=== PATIENT | female | born 1985 | race Caucasian/White ===

== ENCOUNTER 2022-06-09 13:58 | Emergency (ER) | payer BC, SELFPAY ==
[2022-06-09 14:05] VITALS: BP 132/80; PULSE 70; RESP 18; TEMP 37; O2SAT 99
--- NOTE | 2022-06-09 15:30 | DI.RAD_ITS ---
Exam(s) XR FINGER RT LITTLE EXAM: XR FINGER RT LITTLE CLINICAL HISTORY: deformity. TECHNIQUE: 2D digital imaging was performed of the right finger. Three views were obtained. PA/AP, oblique, and lateral views were obtained. COMPARISON: No exams were available for comparison FINDINGS: BONES: There is an acute oblique fracture through the proximal metaphysis of the proximal phalanx of the 5th finger. There is a lucency seen on the articular surface at the 5th MCP joint suspicious for an intra-articular fracture. There is mild angulation of the fracture. There is associated soft ti ssue swelling. No bony destructive lesion is seen. JOINTS: No dislocation present. SOFT TISSUE: Soft tissue swelling is present. IMPRESSION: Acute mildly angulated fracture of the proximal phalanx of the right 5th finger. There is a question of intra-articular extension. There is associated soft tissue swelling. DATA REPOSITORY: RADIATION DOSE DELIVERED:
--- NOTE | 2022-06-09 15:30 | DI.RAD_ITS ---
Exam(s) XR RIBS LT W PA LAT CHEST EXAM: XR RIBS LT W PA LAT CHEST CLINICAL HISTORY: fall, left rib pain TECHNIQUE: 2D digital imaging was performed. Five images were obtained. COMPARISON: No exams were available for comparison FINDINGS: MEDIASTINUM: Normal. HEART: Normal. PULMONARY VASCULATURE: Normal. LUNGS: Clear. PLEURAL SPACE: No pleural effusion or pneumothorax. BONE:Within normal limits for the patient's age. LEFT RIBS: Normal. OTHER FINDINGS:Normal. IMPRESSION: 1. No acute pulmonary findings. 2. Unremarkable left ribs. DATA REPOSITORY: RADIATION DOSE DELIVERED:
--- NOTE | 2022-06-09 15:30 | DI.CT_ITS ---
Exam(s) CT HEAD WO EXAM: CT HEAD WO CLINICAL HISTORY: left chest wall contusion. TECHNIQUE: Imaging Protocol: Axial computed tomography images with coronal and sagittal reformatted images were created and reviewed COMPARISON: No exams were available for comparison FINDINGS: Ventricles and Extra axial spaces: Normal in size and morphology for the patient's age. Hemorrhage: None. Cerebral parenchyma: Normal. Midline shift: None. Brainstem/Cerebellum: Normal. Calvarium: Normal. Visualized Paranasal sinuses/Mastoids: Clear. Soft Tissues: Unremarkable. IMPRESSION: No acute intracranial process. RADIATION DOSE DELIVERED: 720.59mGy.cm Total DLP DATA REPOSITORY: All CT scans at this facility are submitted to the National Radiology Data Registry (NRDR) Dose Index Registry (DIR) with the [employer] (A[employer]). RADIATION OPTIMIZATION: All CT scans at this facility use at least one of these dose optimization te chniques: automated exposure control; mA and/or kV adjustment per patient size (includes targeted exa ms where dose is matched to clinical indication); or iterative reconstruction.
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
--- NOTE | 2022-06-09 16:26 | DI.VRAD_ITS ---
PROCEDURE INFORMATION: Exam: XR Left Finger(s) Exam date and time: 06/09/2022 4:15 PM Age: 36 years old Clinical indication: Other: Deformity TECHNIQUE: Imaging protocol: Radiologic exam of the Left fingers. Views: Minimum 2 views. COMPARISON: No relevant prior studies available. FINDINGS: Bones/joints: Acute mildly angulated fracture of the proximal phalanx of the 5th digit. No dislocation. Remaining bones of the hand are intact. Soft tissues: Unremarkable. IMPRESSION: Acute mildly angulated fracture of the proximal phalanx of the 5th digit. Dictated and Authenticated by: Jalen Pierson MD. Ordering:RUPERTO Garcia MD
--- NOTE | 2022-06-09 16:27 | DI.VRAD_ITS ---
PROCEDURE INFORMATION: Exam: XR Left Ribs Exam date and time: 06/09/2022 4:07 PM Age: 36 years old Clinical indication: Other: Fall, left rib pain TECHNIQUE: Imaging protocol: Radiologic exam of the Left ribs. Views: 2 views. COMPARISON: No relevant prior studies available. FINDINGS: Bones/joints: No acute fracture or dislocation. Ribs are intact without evidence of displaced fracture. Soft tissues: Unremarkable. IMPRESSION: No acute rib fracture. PROCEDURE INFORMATION: Exam: XR Chest Exam date and time: 06/09/2022 4:07 PM Age: 36 years old Clinical indication: Other: Fall, left rib pain TECHNIQUE: Imaging protocol: Radiologic exam of the chest. Views: 2 views. COMPARISON: No relevant prior studies available. FINDINGS: Lungs: No focal areas of consolidation. Pleural spaces: Unremarkable. No pleural effusion. No pneumothorax. Heart/Mediastinum: Cardiac and mediastinal silhouettes are unremarkable. Bones/joints: No acute osseus lesion or fracture. IMPRESSION: No acute findings. Dictated and Authenticated by: Jalen Pierson MD. Ordering:RPUERTO Garcia MD
--- OUTSIDE RECORDS SUMMARY | 2022-06-09 16:49 | XMS_ITS ---
:1985 Author Care Team Providers Name Role Phone KWASI PATEL MD Lab Analyst [phone] KALPESH MARTE MD Primary Care Provider [phone] Allergies Code Code System Name Reaction Severity Status Onset 445618 RxNorm Macrobid ? ? Active ? Penicillins Hives ? Deactivated ? NKDA ? Notes: Patient indicated NO allergies 06/27/2021 Medications Name Status Start Date Stop Date ? ? Mirena Active 05/28/2021 Not available Notes: No medications reported by [email or web address] ent on 05/25/2021 Problems Name Status Onset Date Source ? Body Mass Index 25-29 - Overweight Active 05/27/2021 ? Protein S Deficiency Disease Active 05/27/2021 ? Superficial Thrombophlebitis in Puerperium Active 05/28 ? Procedures Date Name Performed by ? ? Vascular Surgery Procedure Information n ot available Notes: 2015 ? Tonsillectomy Information not avai labjayro Notes: age 9 Results Lab Results None recorded. Past Encounters 06/27/2021 IUD Check Marilyn Castro MD: [address] [place] [phone], Ph. 05/28/2021 Replacement of Intrauterine Contraceptiv e Device Marilyn Castro MD: [address] [place] [phone], Ph. Social History Tobacco Smoking Status Never Smoker Vaccine List Vaccine Type COVID-19 (SARS-COV-2) vaccine, unspecifi ed 01/18/2021 02/17/2021 influenza, injectable, quadrivalent, pre servative free 07/15/2014 Tdap 12/09/2014?0.5 mL Notes: Mirena IUD-device (05/11/2015) Plan of Care Reminders Provider Appointments None recorded. ? ? Lab None recorded. ? ? Referral None recorded. ? ? Procedures None recorded. ? ? Surgeries None recorded. ? ? Imaging None recorded. ? ? Vitals 06/27/2021 10:15AM IUD CHECK 15 Height Weight BMI Blood Pressure 5 ft 8 in 187 lbs 28.4 kg/m2 102/60 mm[Hg] 05/28/2021 02:15PM IUD INSERTION/REMOVAL 30 Height Weight BMI Blood Pressure 5 ft 8 in 187 lbs 28.4 kg/m2 120/70 mm[Hg] 05/03/2020 Height Weight BMI Blood Pressure 5 ft 8 in 180 lbs 27.37 kg/m2 116/72 mm[Hg] 01/24/2017 Height Weight BMI Blood Pressure 5 ft 8 in 158 lbs 24.02 kg/m2 100/68 mm[Hg] 05/31/2015 Height Weight BMI Blood Pressure 5 ft 8 in 168 lbs 25.54 kg/m2 94/70 mm[Hg] 05/11/2015 Height Weight BMI Blood Pressure 5 ft 8 in 170.8 lbs 25.97 kg/m2 106/74 mm[Hg] 03/30/2015 Height Weight BMI Blood Pressure 5 ft 8 in 173.4 lbs 26.36 kg/m2 90/72 mm[Hg] 02/17/2015 Height Weight BMI 5 ft 8 in 191 lbs 29.041 kg/m2 02/10/2015 Height Weight BMI 5 ft 8 in 192.4 lbs 29.254 kg/m2 02/03/2015 Height Weight BMI 5 ft 8 in 190 lbs 28.889 kg/m2 01/27/2015 Height Weight BMI 5 ft 8 in 190 lbs 28.889 kg/m2 01/19/2015 Height Weight BMI 5 ft 8 in 188.2 lbs 28.616 kg/m2 01/06/2015 Height Weight BMI 5 ft 8 in 186 lbs 28.281 kg/m2 12/22/2014 Height Weight BMI 5 ft 8 in 185 lbs 28.129 kg/m2 12/09/2014 Height Weight BMI 5 ft 8 in 183 lbs 27.825 kg/m2 11/23/2014 Height Weight BMI 5 ft 8 in 180 lbs 27.369 kg/m2 10/28/2014 Height Weight BMI 5 ft 8 in 174 lbs 26.457 kg/m2 09/30/2014 Height Weight BMI 5 ft 8 in 170 lbs 25.848 kg/m2 09/09/2014 Height Weight BMI 5 ft 8 in 167 lbs 25.392 kg/m2 08/09/2014 Height Weight BMI 5 ft 8 in 163 lbs 24.784 kg/m2 07/15/2014 Height Weight BMI (1) 5 ft 8 in (1) 162 lbs (1) 24.632 kg/m2 (2) 5 ft 8 in (2) 162 lbs (2) 24.63 kg/m2
== END 2022-06-09 17:09 | disposition home or self-care (01) ==
PROVIDERS: Emergency Provider Registered Nurse Emergency
DX: S62.617A Displaced fracture of proximal phalanx of left little finger, initial encounter for closed fracture (principal); V18.4XXA Pedal cycle driver injured in noncollision transport accident in traffic accident, initial encounter; W22.8XXA Striking against or struck by other objects, initial encounter
CPT/HCPCS: 99284; 70450; 71046; 71100; 73140